=== PATIENT | male | born 1980 | race Caucasian/White ===

== ENCOUNTER 2018-12-04 14:30 | Emergency (ER) | payer MEDICAID ==
[~2018-12-04] VITALS: Ht 172.7 cm; Wt 96.6 kg
[2018-12-04 14:35] VITALS: BP 123/82; Ht 172.7 cm; Wt 96.6 kg
== END 2018-12-04 16:39 | disposition home or self-care (01) ==
LOC: ED 14:30
DX: R51 Headache (principal); R42 Dizziness and giddiness; R11.0 Nausea; M54.2 Cervicalgia; H93.13 Tinnitus, bilateral

== ENCOUNTER 2018-12-16 14:26 | Emergency (ER) | payer MEDICAID ==
[~2018-12-16] VITALS: Ht 182.9 cm; Wt 98.0 kg
[2018-12-16 14:39] VITALS: Ht 182.9 cm; Wt 98.0 kg
[2018-12-16 15:16] LABS: BASOPHIL % 0.4 % (0-2); PLATELET COUNT 275 x10^3mcL (130-400); RED CELL DISTRIBUTION WIDTH 13.6 % (11.5-14.5)
[2018-12-16 15:23] LABS: CALCIUM 8.6 mg/dL (8.5-10.1); CARBON DIOXIDE 28.5 mmol/L (21-32); CHLORIDE SERUM 105 mmol/L (98-107); CREATININE SERUM 0.9 mg/dL (0.7-1.3); GFR1 > 60 mL/min; GLUCOSE SERUM 99 mg/dL (74-106); POTASSIUM SERUM 3.8 mmol/L (3.5-5.1); SODIUM SERUM 141 mmol/L (136-145)
[2018-12-16 15:28] LABS: ALBUMIN 3.8 g/dL (3.4-5.0); ALKALINE PHOSPHATASE 98 U/L (46-116); ALT/SGPT 35 U/L (16-63); AST/SGOT 21 U/L (15-37); BILIRUBIN TOTAL 0.67 mg/dL (0.20-1.00); TOTAL PROTEIN, SERUM 7.5 g/dL (6.4-8.2)
[2018-12-16 16:55] VITALS: BP 122/62
== END 2018-12-16 17:21 | disposition home or self-care (01) ==
LOC: ED 14:26
PROVIDERS: Emergency Medicine
DX: B27.90 Infectious mononucleosis, unspecified without complication (principal); R51 Headache; R11.0 Nausea
CPT/HCPCS: 36415; 86308

== ENCOUNTER 2018-12-23 00:15 | Emergency (ER) | payer MEDICAID ==
[~2018-12-23] VITALS: Ht 182.9 cm; Wt 97.5 kg
[2018-12-23 00:17] VITALS: Ht 182.9 cm; Wt 97.5 kg
[2018-12-23 01:21] LABS: BASOPHIL % 0.9 % (0-2); PLATELET COUNT 273 x10^3mcL (130-400); RED CELL DISTRIBUTION WIDTH 12.5 % (11.5-14.5)
[2018-12-23 01:50] LABS: CALCIUM 8.8 mg/dL (8.5-10.1); CHLORIDE SERUM 105 mmol/L (98-107); CREATININE SERUM 0.8 mg/dL (0.7-1.3); GFR1 > 60 mL/min; GLUCOSE SERUM 105 mg/dL (74-106); POTASSIUM SERUM 3.9 mmol/L (3.5-5.1); SODIUM SERUM 143 mmol/L (136-145)
[2018-12-23 02:07] LABS: ALBUMIN 3.9 g/dL (3.4-5.0); ALKALINE PHOSPHATASE 100 U/L (46-116); ALT/SGPT 66 U/L (16-63); AST/SGOT 35 U/L (15-37); BILIRUBIN TOTAL 0.51 mg/dL (0.20-1.00); TOTAL PROTEIN, SERUM 7.4 g/dL (6.4-8.2)
[2018-12-23 03:47] VITALS: BP 113/68
== END 2018-12-23 03:47 | disposition home or self-care (01) ==
LOC: ED 00:15
PROVIDERS: Emergency Medicine
DX: R07.89 Other chest pain (principal); R11.0 Nausea; R21 Rash and other nonspecific skin eruption
CPT/HCPCS: 36415; Q0092